=== PATIENT | female | born 1970 | race Caucasian/White ===

== ENCOUNTER 2016-11-03 02:02 | Emergency (ER) | payer OTHER ==
[2016-11-03 02:08] VITALS: BP 132/90; PULSE 77; RESP 16; TEMP 97.5; O2SAT 95
[2016-11-03 02:19] LABS: COLOR YELLOW; LEUKOCYTE ESTERASE,URINE 1+ (NEGATIVE); NITRITE,URINE POSITIVE (NEGATIVE)
--- NOTE | 2016-11-03 02:20 | EDPHY ---
H & P Stated Complaint: Burning, urgency, suprapubic pain since 10 pm 11/02/16. HPI/ROS: HPI CHIEF COMPLAINT: Urinary frequency, dysuria, suprapubic pain HISTORY OF PRESENT ILLNESS: This patient 46-year-old female, denies any significant past medical history does not take any daily medications, presents emergency room at 2:20 a.m. in the morning with urinary frequency, dysuria, and suprapubic spasms. She is an RN at the [employer]. Her symptoms started around 10:00 p.m. this evening. She tried to make it throughout the evening however the symptoms became worse with increasing urinary frequency dysuria and bladder spasms she decided come the emergency room. She denies fever, vomiting, back pain. Past Medical History: Denies medical history Past Surgical History: Denies surgical history Social History: Denies daily use of drugs alcohol tobacco products, works as an RN at the [employer] Family History: Noncontributory ROS REVIEW OF SYSTEMS: A comprehensive 10 point review of systems is otherwise negative aside from elements mentioned in the history of present illness. Exam Constitutional appears well nontoxic triage nursing summary reviewed, vital signs reviewed, awake/alert. Eyes normal conjunctivae and sclera, EOMI, PERRLA. HENT normal inspection, atraumatic, moist mucus membranes, no epistaxis, neck supple/ no meningismus, no raccoon eyes. Respiratory clear to auscultation bilaterally, normal breath sounds, no respiratory distress, no wheezing. Cardiovascular rate normal, regular rhythm, no murmur, no edema, distal pulses normal. Gastrointestinal soft, non-tender, no rebound, no guarding, normal bowel sounds, no distension, no pulsatile mass. Genitourinary no CVA tenderness. Musculoskeletal no midline vertebral tenderness, full range of motion, no calf swelling, no tenderness of extremities, no meningismus, good pulses, neurovascularly intact. Skin pink, warm, & dry, no rash, skin atraumatic. Neurologic awake, alert and oriented x 3, AAOx3, moves all 4 extremities equally, motor intact, sensory intact, CN II-XII intact, normal cerebellar, normal vision, normal speech. Psychiatric normal mood/affect. Heme/Lymph/Immune no lymphadenopathy. Differential Diagnosis: Includes but is not limited to in a particular order, urinary tract infection, cystitis, pyelonephritis Medical Decision Making: Plan for this patient check urinalysis. If urinalysis indicates urinary tract infection will start on Keflex here in the emergency room and peridium. Keflex take-home pack and prescription for Keflex and Pyridium. Send urine culture. She does understand return emergency room she develops worsening symptoms includes worsening abdominal pain, fever, vomiting. 0228AM: UA reviewed shows nitrite positive UTI. Will treat. Source: Patient - Personal History LMP (Females 10-55): 8-14 Days Ago Current Tetanus Diphtheria and Acellular Pertussis (TDAP): Yes Tetanus Vaccine Date: < 10 years - Medical/Surgical History Hx Asthma: No Hx Chronic Respiratory Disease: No Hx Diabetes: No Hx Cardiac Disease: No Hx Renal Disease: No Hx Cirrhosis: No Hx Alcoholism: No Hx HIV/AIDS: No Hx Splenectomy or Spleen Trauma: No Other PMH: none reported - Social History Smoking Status: Never smoked Constitutional: Initial Vital Signs Temperature (C) 36.4 C 11/03/16 02:05 Heart Rate 77 11/03/16 02:05 Respiratory Rate 16 11/03/16 02:05 Blood Pressure 132/90 H 11/03/16 02:05 O2 Sat (%) 95 11/03/16 02:05 O2 Delivery Mode Room Air Allergies/Adverse Reactions: No Known Allergies Allergy (Unverified 11/03/16 02:05) Home Medications: Medication Instructions Recorded Cephalexin [Keflex] 500 mg PO Q6H #28 cap 11/03/16 Phenazopyridine HCl [Pyridium] 200 mg PO TID #15 tab 11/03/16 Medical Decision Making - Data Points Laboratory Results: 11/03/16 02:10 Urine Color YELLOW Urine Appearance HAZY Urine pH 6.0 (5.0-7.5) Ur Specific [place] 1.025 (1.002-1.030) Urine Protein 2+ H (NEGATIVE) Urine Ketones NEGATIVE (NEGATIVE) Urine Blood 3+ H (NEGATIVE) Urine Nitrate POSITIVE H (NEGATIVE) Urine Bilirubin NEGATIVE (NEGATIVE) Urine Urobilinogen 0.2 EU EU (0.2-1.0) Ur Leukocyte Esterase 1+ H (NEGATIVE) Urine RBC Pending Urine WBC Pending Ur Epithelial Cells Pending Urine Glucose NEGATIVE (NEGATIVE) Departure - Departure Disposition: Home, Routine, Self-Care Clinical Impression: Urinary tract infection Qualifiers: Urinary tract infection type: acute cystitis Hematuria presence: with hematuria Qualified Code(s): N30.01 - Acute cystitis with hematuria Condition: Good Instructions: Urinary Tract Infection in Women (ED) Additional Instructions: 1. Drink lots of fluids stay well-hydrated 2. Return emergency room if develops worsening abdominal pain, fever, vomiting. Referrals: Patient,NotPresent [Primary Care Provider] - As per Instructions Prescriptions: Cephalexin [Keflex] 500 mg PO Q6H #28 cap Phenazopyridine HCl [Pyridium] 200 mg PO TID #15 tab
[2016-11-03] MEDS ORDERED: CEPHALEXIN 500 MG CAP PO ONE (02:22)
[2016-11-03] MEDS ORDERED: CEPHALEXIN 500MG PREPACK#4 BTL TAKEHOME ONE (02:22)
[2016-11-03 02:25] LABS: RBC,URINE 15-25 /hpf (0-3); WBC,URINE 15-25 /hpf (0-3)
[2016-11-03 02:26] LABS: BACTERIA 3+ /hpf (NONE SEEN)
[2016-11-03] MEDS ORDERED: PHENAZOPYRIDINE HCL 200 MG TAB PO ONE (02:27)
[2016-11-03] MEDS ORDERED: PHENAZOPYRIDINE HCL 200 MG TAB ONE (02:27)
== END 2016-11-03 02:37 | disposition home or self-care (01) ==
LOC: CED 02:02
DX: N30.01 Acute cystitis with hematuria (principal); B96.20 Unspecified Escherichia coli [E. coli] as the cause of diseases classified elsewhere
CPT/HCPCS: 81003-PO; 81015-PO